=== PATIENT | male | born 1955 | race Caucasian/White ===

== ENCOUNTER 2021-06-21 10:40 | Day surgery (SDC) | payer MEDICAID, MEDICARE ==
[2021-06-20 14:02] LABS: PARTIAL THROMBOPLASTIN TIME 27 SECONDS (22-32)
[2021-06-20 14:05] LABS: BASOPHILS # (AUTO) 0.1 X10'3 (0-0.2); EOSINOPHILS # (AUTO) 0.2 X10'3 (0-0.9); EOSINOPHILS % (AUTO) 1.9 % (0-6); HEMATOCRIT 52.8 % (42.0-52.0); HEMOGLOBIN 17.9 g/dl (14.0-17.9); LYMPHOCYTES # (AUTO) 2.1 X10'3 (1.1-4.8); LYMPHOCYTES % (AUTO) 25.2 % (21-51); MEAN CORPUSCULAR HEMOGLOBIN 31.8 PG (27.0-31.0); MEAN CORPUSCULAR VOLUME 93.5 FL (78-98); MEAN PLATELET VOLUME 9.1 FL (7.4-10.4); MONOCYTES # (AUTO) 0.4 X10'3 (0-0.9); MONOCYTES % (AUTO) 4.8 % (2-12); NEUTROPHILS # (AUTO) 5.7 X10'3 (1.8-7.7); NEUTROPHILS % (AUTO) 67.1 % (42-75); PLATELET COUNT 208 X10'3 (140-440); RED BLOOD COUNT 5.65 X10'6 (4.70-6.10); RED CELL DISTRIBUTION WIDTH 14.3 % (11.5-14.5); WHITE BLOOD COUNT 8.5 X10'3 (4.5-11.0)
[2021-06-20 14:14] LABS: ALANINE AMINOTRANSFERASE 26 U/L (12-78); ALBUMIN 3.7 G/DL (3.4-5.0); ALKALINE PHOSPHATASE 85 IU/L (46-116); ANION GAP 10 (8-16); ASPARTATE AMINO TRANSFERASE 15 U/L (10-37); BILIRUBIN,TOTAL 0.7 MG/DL (0.1-1.0); BLOOD UREA NITROGEN 19 MG/DL (7-18); BUN/CREATININE RATIO 17.1 (5.4-32.0); CALCIUM 9.8 MG/DL (8.5-10.1); CHLORIDE 105 MMOL/L (99-107); CREATININE 1.11 MG/DL (0.60-1.10); GLUCOSE 113 MG/DL (70-104); POTASSIUM 3.2 MMOL/L (3.5-5.1); SODIUM 142 MMOL/L (135-145); TOTAL CARBON DIOXIDE 27.3 MMOL/L (24-32); TOTAL PROTEIN 7.3 G/DL (6.4-8.2); eGFR 66 ML/MIN
[~2021-06-21] VITALS: Ht 190.5 cm; Wt 145.0 kg
[2021-06-21] VITALS (11 sets, daily range): BP systolic 120–153; BP diastolic 72–98
[2021-06-21] MEDS ORDERED: LORazepam 0.5 MG tablet PO PRN (11:00)
[2021-06-21] MEDS ORDERED: nitroGLYCERIN 0.4mg SUBLingual tab SL PRN (11:00)
[2021-06-21] MEDS ORDERED: normal saline 1,000 ML IV SCH (11:00)
[2021-06-21] MEDS ORDERED: diphenhydrAMINE 25mg capsule PO PRN (11:00)
[2021-06-21] MEDS ORDERED: CARV6.253 PO (11:03)
[2021-06-21] MEDS ORDERED: POTA-82 PO (11:03)
[2021-06-21] MEDS ORDERED: CHLO50TA PO (11:03)
[2021-06-21] MEDS ORDERED: potassium Cl 20 mEq SR tablet PO STA (11:15)
--- NOTE | 2021-06-21 11:15 | NUR ---
Notified Dr. Manriquez of pt's K of 3.2. Order received for 20MeQ of K PO once.
[2021-06-21] MEDS ORDERED: midazolam 1 mg/ML 2ml injection ONE (11:17)
[2021-06-21] MEDS ORDERED: fentaNYL/PF 50MCG/1 ML 2ML syringe ONE (11:18)
[2021-06-21] MEDS ORDERED: iohexol 350MG/ML 100ml bottle IV ONE (11:18)
[2021-06-21] MEDS ORDERED: iohexol 350 MG/ML 50ML vial IV ONE (11:18)
[2021-06-21] MEDS ORDERED: LIDOcaine 1% (10mg/ml)w/preservative injection 20ml MDV ONE (11:18)
[2021-06-21] MEDS ORDERED: HYDROmorphone 1 mg/ml syringe ONE (12:07)
[2021-06-21] MEDS ORDERED: OXAZEpam 15mg capsule PO PRN (13:20)
[2021-06-21] MEDS ORDERED: HYDROcodone/acetaminophen 10/325mg tab PO PRN (13:20)
[2021-06-21] MEDS ORDERED: proCHLORperazine 10 MG/2 ml inj IV PRN (13:20)
[2021-06-21] MEDS ORDERED: HYDROcodone/acetaminophen 5mg/325mg tablet PO PRN (13:20)
[2021-06-21] MEDS ORDERED: acetaminophen 325mg tablet PO PRN (13:20)
[2021-06-21] MEDS ORDERED: ondansetron/PF 4mg/2ml inj IV PRN (13:20)
[2021-06-21] MEDS ORDERED: normal saline 1000ml 1,000 ML IV SCH (13:20)
--- NOTE | 2021-06-21 13:37 | NUR ---
Pt repeatedly demanding to sit up and stating that his right hip hurts. Attempts made to reposition him off of that hip with the leg straight and patient states it does not help. Pt given Christmas and a serax dose to help with pain and restlessness. He is upset, using foul language and states that "I dont care what you say, if I hurt much longer I will be sitting up and I dont care if I bleed to and you guys can deal with the lawsuit". Pt given water and soda, and offered distraction techniques such as tv/ magazine which he declines. Pt being more frequently checked at the groin site secondary to his restlessness, remains without swelling or hematoma.
== END 2021-06-21 19:00 | disposition home or self-care (01) ==
LOC: SSTAY O 10:40
PROVIDERS: ATTEND Internal Medicine Cardiovascular Disease
DX: R94.39 Abnormal result of other cardiovascular function study (principal); I25.10 Atherosclerotic heart disease of native coronary artery without angina pectoris; I10 Essential (primary) hypertension; G47.33 Obstructive sleep apnea (adult) (pediatric); E78.5 Hyperlipidemia, unspecified; M47.9 Spondylosis, unspecified; F17.210 Nicotine dependence, cigarettes, uncomplicated; Z72.89 Other problems related to lifestyle; Z79.01 Long term (current) use of anticoagulants; Z98.890 Other specified postprocedural states; Z88.5 Allergy status to narcotic agent
CPT/HCPCS: 36415; 71046; 80053; 85025; 85610; 85730; 93005; 93458; 93567; 99152; 99153; C1760; C1769; J1170; J1644; J2001; J2250; J3010; J7030; Q0163; Q9967; A4620; A6258